=== PATIENT | female | born 1990 | race Two or more races ===

== ENCOUNTER 2023-09-13 15:25 | Outpatient (CLI) | payer OTHER ==
[~2023-09-13 15:25] MED LIST: APRESOLINE 10MG10 MG; LABETALOL HCL100 MG; PROTONIX40 M1; SYNTHROID88 MCG
== END 2023-09-13 15:26 | disposition home or self-care (01) ==
LOC: PRENATAL 15:25
PROVIDERS: ATTEND Obstetrics & Gynecology Maternal & Fetal Medicine
DX: O35.9XX0 Maternal care for (suspected) fetal abnormality and damage, unspecified, not applicable or unspecified (principal); O35.3XX0 Maternal care for (suspected) damage to fetus from viral disease in mother, not applicable or unspecified; O45.92 Premature separation of placenta, unspecified, second trimester; O99.282 Endocrine, nutritional and metabolic diseases complicating pregnancy, second trimester; O16.2 Unspecified maternal hypertension, second trimester; O99.212 Obesity complicating pregnancy, second trimester; O99.342 Other mental disorders complicating pregnancy, second trimester; Z3A.22 22 weeks gestation of pregnancy

== ENCOUNTER → 2023-10-26 11:00 | Outpatient (CLI) | payer OTHER | END | disposition home or self-care (01) | LOC: PRENATAL 11:00 | PROVIDERS: ATTEND Obstetrics & Gynecology Maternal & Fetal Medicine | DX: O26.849 Uterine size-date discrepancy, unspecified trimester (principal); O36.8199 Decreased fetal movements, unspecified trimester, other fetus; O99.280 Endocrine, nutritional and metabolic diseases complicating pregnancy, unspecified trimester; O10.019 Pre-existing essential hypertension complicating pregnancy, unspecified trimester; O99.342 Other mental disorders complicating pregnancy, second trimester; O44.00 Complete placenta previa NOS or without hemorrhage, unspecified trimester; Z3A.28 28 weeks gestation of pregnancy ==

== ENCOUNTER 2023-11-23 15:31 | Outpatient (CLI) | payer OTHER | END 2023-11-23 15:32 | disposition home or self-care (01) | LOC: PRENATAL 15:31 | PROVIDERS: ATTEND Obstetrics & Gynecology Maternal & Fetal Medicine | DX: O26.849 Uterine size-date discrepancy, unspecified trimester (principal); O36.8199 Decreased fetal movements, unspecified trimester, other fetus; O99.280 Endocrine, nutritional and metabolic diseases complicating pregnancy, unspecified trimester; O10.019 Pre-existing essential hypertension complicating pregnancy, unspecified trimester; O99.210 Obesity complicating pregnancy, unspecified trimester; Z3A.33 33 weeks gestation of pregnancy ==

== ENCOUNTER 2023-12-23 08:54 | Outpatient (CLI) | payer OTHER | END 2023-12-23 08:55 | disposition home or self-care (01) | LOC: PRENATAL 08:54 | PROVIDERS: ATTEND Obstetrics & Gynecology Maternal & Fetal Medicine | DX: O26.849 Uterine size-date discrepancy, unspecified trimester (principal); O36.8199 Decreased fetal movements, unspecified trimester, other fetus; O99.280 Endocrine, nutritional and metabolic diseases complicating pregnancy, unspecified trimester; O10.019 Pre-existing essential hypertension complicating pregnancy, unspecified trimester; O99.210 Obesity complicating pregnancy, unspecified trimester; Z3A.36 36 weeks gestation of pregnancy ==

== ENCOUNTER 2023-12-28 06:37 | Inpatient (IN) | payer OTHER ==
[2023-12-28] VITALS (10 sets, daily range): BP systolic 104–146; BP diastolic 52–75
[~2023-12-28] VITALS: Ht 170.2 cm; Wt 167.8 kg
[2023-12-28] MEDS ORDERED: MISOPROSTOL 50 MCG TABLET VAG STA ×2 (07:20→11:22)
[2023-12-28] MEDS ORDERED: RINGERS SOLUTION,LACTATED 1,000 ML IV SCH (07:30)
[2023-12-28] MEDS ORDERED: PRENATAL TABLE1 EAC4 PO (07:43)
[2023-12-28] MEDS ORDERED: ADULT LOW DOSE81 M1 PO (07:43)
[2023-12-28 08:11] LABS: URINE APPEARANCE Cloudy; URINE BILIRRUBIN Negative (NEGATIVE); URINE BLOOD Negative; URINE COLOR Dark Yellow; URINE GLUCOSE Negative (NEGATIVE); URINE KETONE Negative (NEGATIVE); URINE LEUKOCYTE Small; URINE NITRATE Negative; URINE PROTEIN Trace (NEGATIVE)
[2023-12-28 08:13] LABS: HEMATOCRIT 31.5 % (36.0-45.00); HEMOGLOBIN 10.4 g/dL (12.0-15.00); MEAN CORPUSCULAR HEMOGLOBIN 26.7 pg (27.00-32.0); PLATELET COUNT 225 K/uL (150-450); RED BLOOD COUNT 3.89 M/uL (4.00-6.00); RED CELL DISTRIBUTION WIDTH 15.5 % (11.5-14.5)
[2023-12-28 08:14] LABS: URINE CAST 2.74 uL (0.0-1.40); URINE EPITHELIAL CELLS 79.9 uL (0.0-38.8); URINE RBC 8.5 uL (0.0-20.8); URINE WBC 147.1 uL (0.0-23.2)
[2023-12-28 08:38] LABS: INR 0.94; PARTIAL THROMBOPLASTIN TIME 30.1 SECONDS (22.0-34.0); PROTHROMBIN TIME 10.3 SECONDS (9.0-11.5)
[2023-12-28 08:40] LABS: URINE BACTERIA > 9821.5 uL (0.0-1933)
[2023-12-28 08:54] LABS: BILIRUBIN TOTAL 0.28 mg/dL (0.3-1.2); CALCIUM 8.9 mg/dL (8.5-10.1); CREATININE SERUM 0.52 mg/dL (0.55-1.02); GFR 134.98; GLOBULINA 3.6 G/DL (2.4-3.5); POTASSIUM 4.33 mEq/L (3.5-5.1); TOTAL PROTEIN 6.6 gm/dL (6.4-8.2)
[2023-12-28] MEDS ORDERED: MEPERIDINE HCL/PF 50 MG/ML VIAL IV ONE (14:42)
[2023-12-28] MEDS ORDERED: PROMETHAZINE HCL 25 MG/ML AMPUL IV ONE ×3 (14:42→20:40)
[2023-12-28] MEDS ORDERED: MEPERIDINE HCL/PF 50 MG/ML VIAL IM ONE (17:40)
[2023-12-28] MEDS ORDERED: MEPERIDINE HCL/PF 25 MG/ML VIAL IM ONE (20:40)
[2023-12-28] MEDS ORDERED: LABETALOL HCL 200 MG TABLET PO SCH (22:12)
[2023-12-28] MEDS ORDERED: hydrALAZINE HCL 25 MG TABLET PO SCH (22:13)
[2023-12-28] MEDS ORDERED: CHLORHEXIDINE GLUCONATE 120 ML BOTTLE TOP ONE (22:15)
[2023-12-28] MEDS ORDERED: ACETAMINOPHEN 325 MG TABLET PO PRN (22:15)
[2023-12-28] MEDS ORDERED: OXYTOCIN 20 UNITS/1000ML RL PIGGYBAG IV ONE (22:15)
[2023-12-28] MEDS ORDERED: OxyCODONE HCL/APAP UD (PERCOCET) PO PRN (22:15)
[2023-12-28] MEDS ORDERED: ERYTHROMYCIN BASE OPHT 1GM EACH TUBE OP ONE (22:15)
[2023-12-28] MEDS ORDERED: LIDOCAINE HCL 1% 10ML VIAL IJ ONE (22:15)
[2023-12-28] MEDS ORDERED: CARBOPROST TROMETHAMINE 250 MCG/ML AMPUL IM STA (22:22)
[2023-12-29 05:53] VITALS: BP 104/68
[2023-12-29 07:03] LABS: HEMATOCRIT 32.8 % (36.0-45.00); MEAN CELL VOLUME 81.3 fL (80.00-100.00); MEAN CORPUSCULAR HGB CONC 33.3 g/dl (32.0-36.0); RED BLOOD COUNT 4.04 M/uL (4.00-6.00); RED CELL DISTRIBUTION WIDTH 15.4 % (11.5-14.5)
[2023-12-29 08:00] VITALS: BP 139/80
[2023-12-29 08:20] LABS: HEMOGLOBIN 10.9 g/dL (12.0-15.00); MEAN CORPUSCULAR HEMOGLOBIN 26.9 pg (27.00-32.0)
[2023-12-29] MEDS ORDERED: HYDROCORTISONE 2.5% 30 GM TUBE RECTAL SCH (09:00)
[2023-12-29] MEDS ORDERED: BENZOCAINE/MENTHOL 90 ML BOTTLE TOP SCH (09:00)
[2023-12-29 09:11] LABS: PLATELET COUNT 254 K/uL (150-450)
[2023-12-29 16:00] VITALS: BP 100/63
[2023-12-30 02:50] VITALS: BP 145/81
[2023-12-30 09:14] VITALS: BP 133/81
== END 2023-12-30 17:13 | disposition home or self-care (01) | DRG 806 ==
LOC: OB/GYN 06:37 → LDR 06:37 → OB/GYN 12-29 00:14
PROVIDERS: ADMIT Specialist; ATTEND Specialist
PROC: 10E0XZZ Delivery of Products of Conception, External Approach (ICD-10-PCS; principal; 2023-12-28)
PROC: 0UQMXZZ Repair Vulva, External Approach (ICD-10-PCS; 2023-12-28)
PROC: 3E033VJ Introduction of Other Hormone into Peripheral Vein, Percutaneous Approach (ICD-10-PCS; 2023-12-28)
PROC: 3E0P7VZ Introduction of Hormone into Female Reproductive, Via Natural or Artificial Opening (ICD-10-PCS; 2023-12-28)
PROC: 4A1HXCZ Monitoring of Products of Conception, Cardiac Rate, External Approach (ICD-10-PCS; 2023-12-28)
DX: O71.82 Other specified trauma to perineum and vulva (principal); O10.92 Unspecified pre-existing hypertension complicating childbirth; Z37.0 Single live birth; O99.214 Obesity complicating childbirth; E66.9 Obesity, unspecified; O99.284 Endocrine, nutritional and metabolic diseases complicating childbirth; E03.9 Hypothyroidism, unspecified; Z3A.37 37 weeks gestation of pregnancy; Z20.822 Contact with and (suspected) exposure to COVID-19

== ENCOUNTER 2024-01-01 20:54 | Emergency (ER) | payer OTHER ==
[~2024-01-01] VITALS: Ht 170.2 cm; Wt 149.7 kg
[~2024-01-01 20:54] MED LIST changes: +ADULT LOW DOSE81 M1 PO; +PRENATAL TABLE1 EAC4 PO
[2024-01-01] MEDS ORDERED: KETOROLAC TROMETHAMINE 60 MG VIAL IM ONE (22:15)
[2024-01-01 23:01] LABS: HEMATOCRIT 31.2 % (36.0-45.00); HEMOGLOBIN 10.5 g/dL (12.0-15.00); MEAN CELL VOLUME 80.1 fL (80.00-100.00); MEAN CORPUSCULAR HGB CONC 33.7 g/dl (32.0-36.0); PLATELET COUNT 279 K/uL (150-450); RED CELL DISTRIBUTION WIDTH 15.8 % (11.5-14.5)
[2024-01-01 23:45] LABS: INR < 0.93; PROTHROMBIN TIME 9.9 SECONDS (9.0-11.5)
[2024-01-01 23:48] LABS: D DIMER 0.92 MG/L; PARTIAL THROMBOPLASTIN TIME 27.9 SECONDS (22.0-34.0)
[2024-01-01 23:53] LABS: ALBUMIN 3.4 gm/dL (3.4-5.0); BILIRUBIN TOTAL 0.24 mg/dL (0.3-1.2); CALCIUM 9.2 mg/dL (8.5-10.1); CREATININE SERUM 0.66 mg/dL (0.55-1.02); GFR 102.52; GLOBULINA 4.2 G/DL (2.4-3.5); POTASSIUM 3.55 mEq/L (3.5-5.1); TOTAL PROTEIN 7.6 gm/dL (6.4-8.2)
[2024-01-02] MEDS ORDERED: ACETAMINOPHEN 500 MG GEL..CAP PO STA (03:24)
== END 2024-01-02 15:17 | disposition home or self-care (01) ==
LOC: ER 20:54
PROVIDERS: General Practice
DX: M79.662 Pain in left lower leg (principal); Z88.8 Allergy status to other drugs, medicaments and biological substances; I10 Essential (primary) hypertension; E03.8 Other specified hypothyroidism